=== PATIENT | male | born 1975 | race Caucasian/White ===

== ENCOUNTER 2021-01-20 21:44 | Emergency (ER) | payer OTHER ==
[2021-01-21] MEDS ORDERED: CEPHALEXIN500 M1 PO (00:23)
[2021-01-21] MEDS ORDERED: BACTRIM DS TAB1 EACH PO (00:23)
== END 2021-01-21 01:00 | disposition home or self-care (01) ==
LOC: FER 21:44
DX: S91.332A Puncture wound without foreign body, left foot, initial encounter (principal); L08.9 Local infection of the skin and subcutaneous tissue, unspecified; E11.621 Type 2 diabetes mellitus with foot ulcer; I10 Essential (primary) hypertension; F17.210 Nicotine dependence, cigarettes, uncomplicated; Z86.19 Personal history of other infectious and parasitic diseases; Z23 Encounter for immunization; W26.9XXA Contact with unspecified sharp object(s), initial encounter; Y92.009 Unspecified place in unspecified non-institutional (private) residence as the place of occurrence of the external cause
CPT/HCPCS: 73630; 90471; 90715; J0696